=== PATIENT | male | born 1935 | race Caucasian/White ===

== ENCOUNTER 2016-12-09 03:54 | Emergency (ER) | payer OTHER ==
--- NOTE | 2016-12-09 04:00 | CPEKG ---
Heart Rate: 67 RR Interval: 896 P-R Interval: 164 QRSD Interval: 66 QT Interval: 400 QTC Interval: 423 P [place]: 45 QRS [place]: -23 T Wave [place]: 13 EKG Severity - OTHERWISE NORMAL ECG - EKG Impression: SINUS RHYTHM EKG Impression: BORDERLINE LEFT AXIS DEVIATION Electronically Signed By: Marvin Kiran 09-Dec-2016 05:45:42
[2016-12-09 04:07] VITALS: RESP 16; TEMP 97.9
[2016-12-09] MEDS ORDERED: levETIRAcetam 500 MG TAB ONE (04:16)
[2016-12-09 04:18] LABS: % IMMATURE GRANULYOCYTES 0.5 % (0.0-1.1); ABSOLUTE IMMATURE GRANULOCYTES 0.05 10^3/uL (0.00-0.10); ADD DIFF? NO; ADD MORPH? NO; ADD SCAN? NO; ATYPICAL LYMPHOCYTE FLAG 10 (0-99); FRAGMENT RBC FLAG 0 (0-99); HEMATOCRIT 45.7 % (40.0-51.0); HEMOGLOBIN 15.8 g/dL (13.7-17.5); LEFT SHIFT FLG 0 (0-99); LIPEMIA HEMOLYSIS FLAG 90 (0-99); MEAN CELL HEMOGLOBIN 32.3 pg (27.9-34.1); MEAN CELL HEMOGLOBIN CONCENTR. 34.6 g/dL (32.4-36.7); MEAN CELL VOLUME 93.5 fL (81.5-99.8); MEAN PLATELET VOLUME 10.7 fL (8.7-11.7); PLATELET CLUMPS FLAG 30 (0-99); PLATELET COUNT 238 10^3/uL (150-400); RED BLOOD CELL COUNT 4.89 10^6/uL (4.40-6.38); RED CELL DISTRIBUTION WIDTH 12.5 % (11.5-15.2)
[2016-12-09] MEDS ORDERED: levETIRAcetam 500 MG TAB PO ONE (04:18)
[2016-12-09 04:39] LABS: ANION GAP 13 mEq/L (8-16); CALCIUM 9.6 mg/dL (8.5-10.4); CARBON DIOXIDE 23 mEq/l (22-31); CHLORIDE 104 mEq/L (97-110); CREATININE 1.1 mg/dL (0.7-1.3); GLOMERULAR FILTRATION RATE > 60; GLUCOSE 152 mg/dL (70-100); SODIUM 140 mEq/L (134-144)
--- NOTE | 2016-12-09 05:02 | EDPHY ---
H & P Stated Complaint: seizure like activity, confusion Time Seen by Provider: 12/09/16 04:06 HPI/ROS: Chief complaint: Seizure HPI: 81-year-old male presenting with possible seizure. Patient's woke this morning here him with sonorous respirations. She was unable to arouse him. She called 911. On EMS arrival patient was arousable somewhat confused. This has improved over the transport. Patient had a similar episode last April. At that time was admitted to the hospital had an extensive workup done. His episode was attributed to likely generalized seizure while sleeping. 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 He was seen by Dr. Velázquez, neurology. He started the patient on Keppra. Patient is states that he had been taking Keppra up until 2 months ago. Two months ago they stopped taking it because he could not recall why he was supposed to be taking this medication. He also states that he did not follow up with Dr. Tan. Right now he is without complaint. States he feels good. Denies any headache. No nausea or vomiting. No chest pain or shortness of breath. No fevers or chills. No recent illness. ROS: 10 point Review of Systems is negative except as noted in the HPI. Physical exam: Gen: Awake, Alert, No Distress HEENT: Nose: no rhinorrhea Eyes: PERRLA, EOMI Mouth: Moist mucosa he does have abrasions on bilateral tongue consistent with oral trauma from seizure Neck: Supple, no JVD Chest: nontender, lungs clear to auscultation Heart: S1, S2 normal, no murmur Abd: Soft, non-tender, no guarding Back: no CVA tenderness, no midline tenderness Ext: no edema, non-tender Skin: no rash Neuro: CN II-XII intact, Sensation grossly intact, Strength 5/5 in bilateral upper and lower extremities - Personal History Current Tetanus/Diphtheria Vaccine: Unsure Current Tetanus Diphtheria and Acellular Pertussis (TDAP): Unsure - Medical/Surgical History Hx Asthma: No Hx Chronic Respiratory Disease: No Hx Diabetes: No Hx Cardiac Disease: No Hx Renal Disease: No Hx Cirrhosis: No Hx Alcoholism: No Hx HIV/AIDS: No Hx Splenectomy or Spleen Trauma: No Other PMH: HTN, SZ, CVA, TBI - Social History Smoking Status: Former smoker Constitutional: Initial Vital Signs Temperature (C) 36.6 C 12/09/16 04:01 Heart Rate 66 12/09/16 04:01 Respiratory Rate 16 12/09/16 04:01 Blood Pressure 164/83 H 12/09/16 04:01 O2 Sat (%) 92 12/09/16 04:01 O2 Delivery Mode Room Air Allergies/Adverse Reactions: No Known Allergies Allergy (Verified 12/09/16 04:03) Home Medications: Medication Instructions Recorded Herbals/Supplements -Info Only 1 ea PO DAILY 04/22/16 Multivitamins [Tab-A-Sylvia] 1 each PO DAILY 04/22/16 Nadolol [Nadolol 20 mg (RX)] 10 mg PO DAILY 04/22/16 Medical Decision Making ED Course/Re-evaluation: I have reviewed the patient's records from last April. He was indeed thought that he had a seizure at that time. He was discharged with prescription for Keppra instructions follow up with Dr. Tan. Patient had the exact same episode this morning as was described from his prior admission. He is currently awake and alert without complaint. I have given him a dose of oral Keppra here instructed him that he needs to resume taking this medication. His says that she knows that she does have some in the medicine comfort at home. I have also informed that they need to follow up with Dr. Tan for further evaluation. They indicate that he will do so. He has had no further seizure-like activity in the emergency department. Blood work is otherwise unremarkable. - Data Points Laboratory Results: Laboratory Results 12/09/16 04:00 12/09/16 04:00 12/09/16 12/09/16 04:00 04:00 WBC 9.52 10^3/uL H 10^3/uL (3.80-9.50) RBC 4.89 10^6/uL 10^6/uL (4.40-6.38) Hgb 15.8 g/dL g/dL (13.7-17.5) Hct 45.7 % % (40.0-51.0) MCV 93.5 fL fL (81.5-99.8) MCH 32.3 pg pg (27.9-34.1) MCHC 34.6 g/dL g/dL (32.4-36.7) RDW 12.5 % % (11.5-15.2) Plt Count 238 10^3/uL 10^3/uL (150-400) MPV 10.7 fL fL (8.7-11.7) Neut % (Auto) 52.8 % % (39.3-74.2) Lymph % (Auto) 36.6 % % (15.0-45.0) [place] % (Auto) 7.9 % % (4.5-13.0) Eos % (Auto) 1.8 % % (0.6-7.6) Baso % (Auto) 0.4 % % (0.3-1.7) Nucleat RBC Rel Count 0.0 % % (0.0-0.2) Absolute Neuts (auto) 5.03 10^3/uL 10^3/uL (1.70-6.50) Absolute Lymphs (auto) 3.48 10^3/uL H 10^3/uL (1.00-3.00) Absolute Monos (auto) 0.75 10^3/uL 10^3/uL (0.30-0.80) Absolute Eos (auto) 0.17 10^3/uL 10^3/uL (0.03-0.40) Absolute Basos (auto) 0.04 10^3/uL 10^3/uL (0.02-0.10) Absolute Nucleated RBC 0.00 10^3/uL 10^3/uL (0-0.01) Immature Gran % 0.5 % % (0.0-1.1) Immature Gran # 0.05 10^3/uL 10^3/uL (0.00-0.10) Sodium 140 mEq/L mEq/L (134-144) Potassium 5.0 mEq/L mEq/L (3.5-5.2) Chloride 104 mEq/L mEq/L (97-110) Carbon Dioxide 23 mEq/l mEq/l (22-31) Anion Gap 13 mEq/L mEq/L (8-16) BUN 17 mg/dL mg/dL (7-23) Creatinine 1.1 mg/dL mg/dL (0.7-1.3) Estimated GFR > 60 Glucose 152 mg/dL H mg/dL (70-100) Calcium 9.6 mg/dL mg/dL (8.5-10.4) Medications Given: Discontinued Medications Levetiracetam (Keppra) 1,000 mg PO EDNOW ONE Stop: 12/09/16 04:19 Last Admin: 12/09/16 04:19 Dose: 1,000 mg Departure - Departure Disposition: Home, Routine, Self-Care Clinical Impression: Seizure Condition: Good Instructions: Epilepsy (ED) Additional Instructions: Please continue taking your Keppra prescribed the last time your in the hospital. Follow up with Dr. Tan, neurology, in 3-4 days for re-evaluation. Return to the emergency department for increasing seizure activity. Headache, fevers, chills, chest pain, shortness of breath, passing out, or any other concerns. Referrals: Patient,NotPresent [Primary Care Provider] - As per Instructions Marvin Tan DO [Medical Doctor] - As per Instructions
[2016-12-09 05:37] VITALS: BP 160/87; PULSE 67; O2SAT 93
== END 2016-12-09 05:37 | disposition home or self-care (01) ==
LOC: EDUNIT#
DX: G40.909 Epilepsy, unspecified, not intractable, without status epilepticus (principal); I10 Essential (primary) hypertension; Z86.73 Personal history of transient ischemic attack (TIA), and cerebral infarction without residual deficits; Z87.891 Personal history of nicotine dependence